=== PATIENT | female | born 1960 | race Caucasian/White ===

== ENCOUNTER 2025-04-02 12:40 | Inpatient (IN) | payer BC, OTHER ==
[~2025-04-02] VITALS: Ht 167.6 cm; Wt 116.0 kg
--- NOTE | 2025-04-02 13:21 | ED.PDOC ---
History of Present Illness HPI Comments A 65 YEAR OLD FEMALE PRESENTS TO THE ED WITH COMPLAINT OF WOUND RECHECK OF RIGHT LOWER LEG. PATIENT STATES THAT SHE SUSTAINED A DOG BITE WOUND ON HER RIGHT LOWER LEG 4 MONTHS AGO AND HAS BEEN EXPERIENCING AN INFECTION TO THIS AREA OFF AND ON SINCE THEN. PATIENT REPORTS SHE HAS BEEN PRESCRIBED MULTIPLE ANTIBIOTICS OVER THE PAST 4 WEEKS FROM [facility] AND HER PRIMARY CARE PHYSICIAN, BUT NOTES THERE HAS BEEN NO IMPROVEMENT IN HIS SYMPTOMS. PATIENT STATES SHE CURRENTLY HAS A WOUND TO HER RIGHT LOWER EXTREMITY WITH REDNESS AND SWELLING. PATIENT DENIES FEVER, CHILLS, SHORTNESS OF BREATH, CHEST PAIN, ABDOMINAL PAIN, NAUSEA, VOMITING, HEADACHE, OR OTHER COMPLAINTS. NO OTHER SYMPTOMS OR MODIFYING FACTORS AT THIS TIME. PATIENT IS ALERT, ORIENTED X 4, AND HAS STEADY GAIT. Chief Complaint: Wound Check Time Seen by MD: 12:46 Reviewed Notes: Nurses Notes, Medications, Allergies Allergies: Coded Allergies: No Known Drug Allergy (Verified Allergy, Unknown, 04/02/25) Information Source: Patient Mode of Arrival: Ambulatory Severity: Moderate Timing: Months Duration: Since onset Prehospital treatment: None Medication Refill: For: Other (WOUND RECHECKED OF RIGHT LOWER LEG) Past Medical History PAST MEDICAL HISTORY: Denies Surgical History: Denies all surgeries BASS MECHANISM MAKER History: No Pertinent BASS MECHANISM MAKER History Family History Family History: Reviewed,noncontributory to illness Social History Smoker: Non-Smoker Alcohol: Denies ETOH Use Drugs: Denies Drug Use Lives In: Home Constitutional: denies: chills, diaphoresis, fatigue, fever, malaise, sweats, weakness, others EENTM: denies: blurred vision, double vision, ear bleeding, ear discharge, ear drainage, ear pain, ear ringing, eye pain, eye redness, hearing loss, mouth yoel n, mouth swelling, nasal discharge, nose bleeding, nose congestion, nose pain, photophobia, tearing, throat pain, throat swelling, voice changes, others Respiratory: denies: cough, hemoptysis, orthopnea, SOB at rest, shortness of breath, SOB with excertion, stridor, wheezing, others Cardiovascular: denies: chest pain, dizzy spells, diaphoresis, Dyspnea on exertion, edema, irregular heart beat, left arm pain, lightheadedness, palpitations, PND, syncope, others Gastrointestinal: denies: abdomen distended, abdominal pain, blood streaked bowels, constipated, diarrhea, dysphagia, difficulty swallowing, hematemesis, melena, nausea, poor appetite, poor fluid intake, rectal bleeding, rectal pain, vomiting, others Genitourinary: denies: abnormal vagina bleeding, burning, dyspareunia, dysuria, flank pain, frequency, hematuria, incontinence, pain, , vagina discharge, urgency, others Neurological: denies: dizziness, fainting, headache, left sided numbness, left sided weakness, numbness, paresthesia, pre-existing deficit, right sided numbness, right sided weakness, seizure, speech problems, tingling, tremors, weakness, others Musculoskeletal: denies: back pain, gout, joint pain, joint swelling, muscle pain, muscle stiffness, neck pain, others Integumetry: reports: lesions, wounds (WOUND OF RIGHT LOWER LEG WITH REDNESS AND SWELLING); denies: bruises, change in color, change in hair/nails, dryness, laceration, lumps, rash, others Allergic/Immunocompromised: denies: Difficulty Healing, Frequent Infections, Hives, Itching, others Hematologic/Lymphatic: denies: anemia, blood clots, easy bleeding, easy bruising, swollen glands, others Endocrine: denies: excessive hunger, excessive sweating, excessive thirst, excessive urination, flushing, intolerance to cold, intolerance to heat, unexplained weight gain, unexplained weight loss, others Psychiatric: denies: anxiety, bipolar disorder, depression, hopeless, panic disorder, schizophrenia, sleepless, suicidal, others All Other Systems: Reviewed and Negative Physical Exam General Appearance: No Apparent Distress, Obese HEENT: Normal ENT Inspection, PERRL/EOMI, Pharynx Normal, TMs Normal Neck: Full Range of Motion, Non-Tender, Normal, Normal Inspection Respiratory: Chest Non-Tender, Lungs Clear, No Accessory Muscle Use, No Respiratory Distress, Normal Breath Sounds Cardiovascular: No Edema, No JVD, No Murmur, No Gallop, Normal Peripheral Pulses, Regular Rate/Rhythm Breast Exam: Deferred Gastrointestinal: No Organomegaly, Non Tender, No Pulsatile Mass, Normal Bowel Sounds, Soft Genitalia: Deferred Pelvic: Normal External Exam Rectal: Deferred Extremities: No calf tenderness, Normal capillary refill, Normal range of motion, No pedal edema, Tender (WITH A DRY OPEN WOUND ON RIGHT POSTERIOR LOWER LEG. NO DVT SIGNS. ) Musculoskeletal : Apperance: Normal Neurologic: Alert, brood station manager II-XII nml as Tested, No Motor Deficits, Normal Affect, Normal Mood, No Sensory Deficits Cerebellar Function: Normal Reflexes: Normal Skin: Dry, Normal Color, Warm, Wounds (A [id number] DRY OPEN WOUND WITH LOCALIZED ERYTHEMA, SWELLING AND HARDNESS ON RIGHT P[OSTERIOR LOWER LEG, NO PUS DRAINAGE, CONSISTENT WITH WOUND INFECTION/CELLULITIS. ) Peripheral Pulses: 2+ carotid (R), 2+ carotid (L), 2+ dorsalis pedis (R), 2+ d orsalis pedis (L) Lymphatic: No Adenopathy Was a procedure done? Was a procedure done?: No Differential Dx Considerations may include: WOUND RECHECKED, WOUND INFECTION, CELLULITIS, FAILURE OF OUTPATIENT TREATMENT, ABSCESS X-Ray, Labs, Meds, VS Vital Signs Date Time Temp Pulse Resp B/P (MAP) Pulse Ox O2 Delivery O2 Flow Rate FiO2 04/02/25 12:46 97.4 109 18 110/78 91 97.4 Lab Test 04/02/25 13:24 Range/Units White Blood Count 6.1 4.4-10.8 10^3/uL Red Blood Count 4.42 4.0-5.20 10^6/uL Hemoglobin 13.8 12.2-16.2 g/dL Hematocrit 40.0 36.0-46.0 % Mean Corpuscular Volume 90.6 80.0-100.0 fL Mean Corpuscular Hemoglobin 31.3 28.0-32.0 pg Mean Corpuscular Hemoglobin Concent 34.5 32.0-36.0 g/dL Red Cell Distribution Width 14.5 H 11.8-14.3 % Platelet Count 209 140-450 10^3/uL Mean Platelet Volume 8.1 6.9-10.8 fL Neutrophils (%) (Auto) 62.5 37.0-80.0 % Lymphocytes (%) (Auto) 26.2 10.0-50.0 % Monocytes (%) (Auto) 5.1 0.0-12.0 % Eosinophils (%) (Auto) 5.0 0.0-7.0 % Basophils (%) (Auto) 1.2 0.0-2.0 % Neutrophils # (Auto) 3.8 1.6-8.6 10 ^3/uL Lymphocytes # (Auto) 1.6 0.4-5.4 10 ^3/uL Monocytes # (Auto) 0.3 0-1.3 10 ^3/uL Eosinophils # (Auto) 0.3 0-0.8 10 ^3/uL Basophils # (Auto) 0.1 0-0.2 10 ^3/uL Nucleated Red Blood Cells 0.1 % Sodium Level 144 136-145 mmol/L Potassium Level 3.8 3.5-5.1 mmol/L Chloride Level 107 98-107 mmol/L Carbon Dioxide Level 27 20-31 mmol/L Anion Gap 10 5-15 Blood Urea Nitrogen 15 9-23 mg/dL Creatinine 0.80 0.550-1.02 mg/dL Glomerular Filtration Rate Calc 83 >90 mL/min BUN/Creatinine Ratio 18.8 10.0-20.0 Serum Glucose 120 H 74-106 mg/dL Lactic Acid Level 1.9 0.4-2.0 mmol/L Calcium Level 9.7 8.7-10.4 mg/dL X-Ray, Labs, Meds, VS Comment EXTERNAL MEDICAL RECORDS REVIEWED: [NONE] INDEPENDENT HISTORIANS: [NONE] SOCIAL DETERMINANTS OF HEALTH: [NONE] LABS ORDERED: CBC, BMP, BLOOD CULTURE, LACTIC ACID W/REFLEX REVIEWED AND INTERPRETED RESULTS: NORMAL IMAGING ORDERED: NONE TREATMENTS ORDERED: NS 1 L IV, ZOSYN 3.375 G IV PROCEDURES PERFORMED: NONE CRITICAL CARE TIME: NONE I HAVE DISCUSSED THE PATIENT WITH THE ATTENDING PHYSICIAN DR. RUFF AND HE AGREES WITH THE PATIENT'S PLAN OF CARE. UPON MY PHYSICAL EXAMINATION, THE PATIENT HAD A DRY WOUND ON HER RIGHT POSTERIOR LOWER LEG WITH SURROUNDING REDNESS AND SWELLING CONSISTENT WITH WOUND INFECTION AND ACUTE CELLULITIS. DUE TO THE PATIENT'S FAILING OUTPATIENT TREATMENT MULTIPLE TIMES AND THE FACT THAT HER PHYSICAL EXAM FINDINGS REVEALED FINDINGS SUGGESTIVE OF ACUTE CELLULITIS AND WOUND INFECTION, I HAVE DETERMINED THE PATIENT NEEDS TO BE ADMITTED FOR FURTHER TREATMENT AND EVALUATION. THE ON-CALL HOSPITALIST WILL BE CONTACTED FOR ADMISSION IN HIS PATIENT. Images Reviewed?: Images reviewed and evaluated by me Time of 1ST Reevaluation: 03:00 Reevaluation 1ST: Unchanged Patient Education/Counseling: Diagnosis, Treatment Family Education/Counseling: Diagnosis, Treatment SEPSIS Sepsis Screen Date sepsis recognized/suspect: Apr 02, 2025 Time Sepsis recognized/suspect: 125 Recent Procedure: No On Antibiotic Therapy: No Respiratory Rate >20: No Heart Rate >90: No Temp<36 C (96.8 F) or >38.3 C: No SBP <90 or MAP <65 mmHG: No New Acute Mental Status Change: No Is the patient on CPAP, BIPAP,: No Physician Orders Blood Culture (04/02/25 13:10) Heplock Iv (04/02/25 ) Sodium Chloride 0.9% (04/02/25 13:15) Vital Signs Date Time Temp Pulse Resp B/P (MAP) Pulse Ox O2 Delivery O2 Flow Rate FiO2 04/02/25 12:46 97.4 109 18 110/78 91 97.4 Laboratory Tests Test 04/02/25 13:24 Lactic Acid Level 1.9 mmol/L (0.4-2.0) White Blood Count 6.1 10^3/uL (4.4-10.8) Departure 1 Departure Time of Disposition: 15:00 Impression: Primary Impression: Cellulitis of right lower extremity Additional Impressions: Infected wound Failure of outpatient treatment Disposition: ADMITTED INPATIENT Condition: Serious Critical Care Note Critical Care Time?: No Stability Stability form required: Yes Unstable for transfer: Requires medication, ED Physician Assesment, Possible rapid decline I personally scribed for OSWALDO DIAZ ([email or web address]) on 04/02/25 at 13:21. Electronically submitted by Pedro Anderson ([email or web address]). I personally scribed for OSWALDO DIAZ ([email or web address]) on 04/02/25 at 14:40. Electronically submitted by Pedro WHITNEY). OSWALDO DIAZ Apr 02, 2025 13:21
[2025-04-02 13:36] LABS: Hematocrit 40.0 % (36.0-46.0); Hemoglobin 13.8 g/dL (12.2-16.2); Mean Corpuscular Hemoglobin 31.3 pg (28.0-32.0); Mean Corpuscular Volume 90.6 fL (80.0-100.0); Nucleated Red Blood Cells % 0.1 %
[2025-04-02 13:48] LABS: Potassium 3.8 mmol/L (3.5-5.1); Sodium 144 mmol/L (136-145)
[2025-04-02 13:49] LABS: Calcium 9.7 mg/dL (8.7-10.4); Carbon Dioxide 27 mmol/L (20-31)
[2025-04-02 13:51] LABS: Chloride 107 mmol/L (98-107)
[2025-04-02 13:54] LABS: BUN/Creatinine Ratio 18.8 (10.0-20.0); Blood Urea Nitrogen 15 mg/dL (9-23)
[2025-04-02 13:55] LABS: Glucose 120 mg/dL (74-106)
[2025-04-02 14:00] LABS: Anion Gap 10 (5-15)
[2025-04-02] MEDS ORDERED: ACETAMINOPHEN 325 MG TAB PO PRN (15:45)
[2025-04-02] MEDS ORDERED: ONDANSETRON HCL 4 MG/2 ML VIAL IV PRN (15:45)
--- NOTE | 2025-04-02 16:48 | DVHHP2 ---
History of Present Illness Reason for Visit: Wound check History of Present Illness 65-year-old female presents for evaluation of wound check. Patient reports being bitten by a dog on her right lower extremity three months ago. Patient finished the course of antibiotics last month and reports seen minor improvement. She continues to have redness around the wound. Denies purulent discharge. No fever or chills. Past Medical History Denies Past Surgical History Denies Family History Noncontributory Smoke: No ALCOHOL: none Drugs: None Lives: with Family Review of Systems Review of Systems Review of systems are currently negative otherwise addressed in HPI. Allergies: Coded Allergies: No Known Drug Allergy (Verified Allergy, Unknown, 04/02/25) Medications Current Medications Medications Dose Ordered Sig/Mojgan Route Start Time Stop Time Status Last Admin Dose Admin Ceftriaxone Sodium 50 ml @ 100 mls/hr DAILY@09 IV 04/03/25 09:00 Clindamycin Phosphate 50 ml @ 50 mls/hr Q8HR IV 04/02/25 22:00 Acetaminophen/ Hydrocodone Bitart 1 tab Q4HP PRN PO 04/02/25 15:45 Ondansetron HCl 4 mg Q4HP PRN IV 04/02/25 15:45 Acetaminophen 650 mg Q6HP PRN PO 04/02/25 15:45 Exam Vital Signs Vital Signs Date Time Temp Pulse Resp B/P (MAP) Pulse Ox O2 Delivery O2 Flow Rate FiO2 04/02/25 15:42 98.5 89 18 123/55 (77) 95 98.5 Exam Gen: 65-year-old female in mild distress Skin: Warm, dry, normal color and texture, no rash. HEENT: Normocephalic atraumatic, mucous membranes moist and pink. Neck: Cervical and supraclavicular nodes normal without enlargement, trachea is midline, thyroid gland is normal without masses. Pulmonary: Clear to auscultation and percussion bilaterally. Cardiac: Regular rate and rhythm. No murmur Abdomen: Soft, nontender, nondistended, bowel sounds present all 4 quadrants, no guarding, no rigidity, no organomegaly. Extremities: No cyanosis, clubbing, right lower extremity healing open wound with mild erythema surrounding Neuro: Cranial nerves II through XII grossly intact, normal affect and speech, no focal motor deficits. Labs/Xrays Labs Test 04/02/25 13:24 Range/Units White Blood Count 6.1 4.4-10.8 10^3/uL Red Blood Count 4.42 4.0-5.20 10^6/uL Hemoglobin 13.8 12.2-16.2 g/dL Hematocrit 40.0 36.0-46.0 % Mean Corpuscular Volume 90.6 80.0-100.0 fL Mean Corpuscular Hemoglobin 31.3 28.0-32.0 pg Mean Corpuscular Hemoglobin Concent 34.5 32.0-36.0 g/dL Red Cell Distribution Width 14.5 H 11.8-14.3 % Platelet Count 209 140-450 10^3/uL Mean Platelet Volume 8.1 6.9-10.8 fL Neutrophils (%) (Auto) 62.5 37.0-80.0 % Lymphocytes (%) (Auto) 26.2 10.0-50.0 % Monocytes (%) (Auto) 5.1 0.0-12.0 % Eosinophils (%) (Auto) 5.0 0.0-7.0 % Basophils (%) (Auto) 1.2 0.0-2.0 % Neutrophils # (Auto) 3.8 1.6-8.6 10 ^3/uL Lymphocytes # (Auto) 1.6 0.4-5.4 10 ^3/uL Monocytes # (Auto) 0.3 0-1.3 10 ^3/uL Eosinophils # (Auto) 0.3 0-0.8 10 ^3/uL Basophils # (Auto) 0.1 0-0.2 10 ^3/uL Nucleated Red Blood Cells 0.1 % Sodium Level 144 136-145 mmol/L Potassium Level 3.8 3.5-5.1 mmol/L Chloride Level 107 98-107 mmol/L Carbon Dioxide Level 27 20-31 mmol/L Anion Gap 10 5-15 Blood Urea Nitrogen 15 9-23 mg/dL Creatinine 0.80 0.550-1.02 mg/dL Glomerular Filtration Rate Calc 83 >90 mL/min BUN/Creatinine Ratio 18.8 10.0-20.0 Serum Glucose 120 H 74-106 mg/dL Lactic Acid Level 1.9 0.4-2.0 mmol/L Calcium Level 9.7 8.7-10.4 mg/dL SEPSIS Sepsis Screen Date sepsis recognized/suspect: Apr 02, 2025 Time Sepsis recognized/suspect: 1251 Recent Procedure: No On Antibiotic Therapy: No Respiratory Rate >20: No Heart Rate >90: No Temp<36 C (96.8 F) or >38.3 C: No SBP <90 or MAP <65 mmHG: No New Acute Mental Status Change: No Is the patient on CPAP, BIPAP,: No Physician Orders Blood Culture (04/02/25 13:10) Heplock Iv (04/02/25 ) Sodium Chloride 0.9% (04/02/25 13:15) Ceftriaxone 1gm/50ml (Rocephin) (04/03/25 09:00) Clindamycin 600mg Iv (Cleocin Iv) (04/02/25 22:00) * Wound Consult (04/02/25 ) Basic Metabolic Panel (04/03/25 04:00) Regular Diet (04/02/25 Dinner) Admit (04/02/25 15:31) Hydrocodone-Acet 5/325mg Tab ([place] 5/32 (04/02/25 15:45) Ondansetron Hcl (Zofran) (04/02/25 15:45) Complete Blood Count (04/03/25 04:00) Condition: Stable (04/02/25 15:31) Acetaminophen Tablet (Tylenol Tablet) (04/02/25 15:45) Bedrest With Bathroom Privileg (04/02/25 15:31) Vital Signs Date Time Temp Pulse Resp B/P (MAP) Pulse Ox O2 Delivery O2 Flow Rate FiO2 04/02/25 15:42 98.5 89 18 123/55 (77) 95 98.5 04/02/25 12:46 97.4 109 18 110/78 91 97.4 Laboratory Tests Test 04/02/25 13:24 Lactic Acid Level 1.9 mmol/L (0.4-2.0) White Blood Count 6.1 10^3/uL (4.4-10.8) Assessment/Plan Assessment/Plan Assessment Right lower extremity mild wound with cellulitis Plan Admit the patient to [facility] to the hospitalist Rocephin/clindamycin Wound consult Continue treatment per orders. Plan discussed with: Patient My Orders Orders - DESI WELLS Procedure Category Date Status Time Ceftriaxone 1gm/50ml PHA 04/03/25 In Process (Rocephin) 09:00 Clindamycin 600mg Iv PHA 04/02/25 In Process (Cleocin Iv) 22:00 * Wound Consult CONS 04/02/25 Transmitted Basic Metabolic Panel LAB 04/03/25 Verified 04:00 Regular Diet DIET 04/02/25 Transmitted Dinner Admit ADMIT 04/02/25 Transmitted 15:31 Hydrocodone-Acet PHA 04/02/25 In Process 5/325mg Tab ([place] 15:45 Ondansetron Hcl PHA 04/02/25 In Process (Zofran) 15:45 Complete Blood Count LAB 04/03/25 Verified 04:00 Condition: Stable JUN 04/02/25 In Process 15:31 Acetaminophen Tablet PHA 04/02/25 In Process (Tylenol Tablet) 15:45 Bedrest With Bathroom JUN 04/02/25 In Process Privileg 15:31 Date of Service: Apr 02, 2025 Billing Provider: DESI WELLS Common Visit Codes: [id number] INP/OBS CARE (MOD) DESI WELLS Apr 02, 2025 16:48
[2025-04-02 18:00] VITALS: BP 130/84; PULSE 72; PULSE 90; RESP 17; TEMP 98; O2SAT 97
[2025-04-02] MEDS: SODIUM CHLORIDE 0.9% 1,000 ML IV ONE (18:00)
[2025-04-02] MEDS: HYDROcodone-ACET 5/325MG TAB PO PRN (18:03)
[2025-04-02 20:00] VITALS: PULSE 94; RESP 19; O2SAT 93
[2025-04-02 21:00] VITALS: BP 113/61; PULSE 94; RESP 19; TEMP 98; O2SAT 93
[2025-04-02] MEDS: CLINDAMYCIN 600MG IV 50 ML IV SCH (22:00)
[2025-04-03] VITALS (8 sets, daily range): BP systolic 101–118; BP diastolic 50–74; PULSE 78–96; RESP 17–19; TEMP 97.1–98.9; O2SAT 91–95
[2025-04-03 06:11] LABS: Hematocrit 37.3 % (36.0-46.0); Hemoglobin 12.5 g/dL (12.2-16.2); Mean Corpuscular Hemoglobin 30.8 pg (28.0-32.0); Mean Corpuscular Volume 91.7 fL (80.0-100.0); Nucleated Red Blood Cells % 0.2 %
[2025-04-03 06:25] LABS: Potassium 4.2 mmol/L (3.5-5.1); Sodium 143 mmol/L (136-145)
[2025-04-03 06:26] LABS: Anion Gap 6 (5-15); Calcium 8.7 mg/dL (8.7-10.4); Carbon Dioxide 27 mmol/L (20-31)
[2025-04-03 06:31] LABS: BUN/Creatinine Ratio 27.9 (10.0-20.0); Blood Urea Nitrogen 17 mg/dL (9-23); Glucose 83 mg/dL (74-106)
[2025-04-03 06:37] LABS: Chloride 110 mmol/L (98-107)
--- NOTE | 2025-04-03 13:38 | DVHPN2 ---
Reviewed: Care Plan, H&P, Labs, Medications, Previous Orders, Radiology Changes from previous H/P or p: No Changes Objective Vitals Vital Signs Date Time Temp Pulse Resp B/P (MAP) Pulse Ox O2 Delivery O2 Flow Rate FiO2 04/03/25 09:00 97.7 83 17 118/74 (89) 93 97.7 04/03/25 07:59 Room Air* 0 21 Intake/Output Intake and Output 04/03/25 07:00 Intake Total 530 ml Balance 530 ml Intake Oral 480 ml IV Total 50 ml # Voids 2 Medications Current Medications Medications Dose Ordered Sig/Mojgan Route Start Time Stop Time Status Last Admin Dose Admin Ceftriaxone Sodium 50 ml @ 100 mls/hr DAILY@09 IV 04/03/25 09:00 04/03/25 09:28 100 MLS/HR Clindamycin Phosphate 50 ml @ 50 mls/hr Q8HR IV 04/02/25 22:00 04/03/25 06:05 50 MLS/HR Acetaminophen/ Hydrocodone Bitart 1 tab Q4HP PRN PO 04/02/25 15:45 04/02/25 18:03 1 TAB Ondansetron HCl 4 mg Q4HP PRN IV 04/02/25 15:45 Acetaminophen 650 mg Q6HP PRN PO 04/02/25 15:45 Laboratory Results Laboratory Tests 04/03/25 04:45 Chemistry Test 04/03/25 04:45 Calcium Level 8.7 mg/dL (8.7-10.4) Labs and/or images reviewed: Labs reviewed by me, Image(s) reviewed by me Assessment/Plan Assessment/Plan Cellulitis Right lower extremity: Rocephin clindamycin History of dog bite three months ago Noncompliance patient does not go to doctors Arterial ultrasound, venous ultrasound, MRI, podiatric consult ordered Plan discussed with: Patient Date of Service: Apr 03, 2025 Billing Provider: OLE DENISE MD Common Visit Codes: [id number] INP/OBS CARE(HIGH) OLE DENISE MD Apr 03, 2025 13:38
--- NOTE | 2025-04-03 14:21 | DVH ---
US RT Lower DVT HISTORY: Nonhealing wound rule out DVT COMPARISON: None TECHNIQUE: Realtime grayscale, color flow, and Doppler ultrasound images of the deep venous structures with spectral waveform analysis were obtained. Doppler spectral waveform analysis of the right lower extremity veins was performed. FINDINGS: Right Lower Extremity: Right common femoral vein: Normal compressibility and flow. Right femoral vein: Normal compressibility and flow. Right popliteal vein: Normal compressibility and flow. Probable popliteal fossa Lo's cyst. IMPRESSION: NO SONOGRAPHIC EVIDENCE FOR DEEP VENOUS THROMBOSIS IN THE right LOWER EXTREMITY VEINS.
--- NOTE | 2025-04-03 14:32 | DVH ---
BILATERAL Lower Extremity Arterial Duplex Date: 04/03/2025 02:02 PM CLINICAL HISTORY: Nonhealing wound right lower leg COMPARISON: None TECHNIQUE: Duplex Doppler evaluation including color Doppler and spectral/pulsed waveform analysis of the lower extremity arteries was performed. Finding: RIGHT: Peak systolic velocities are as follows: VETERINARY PRACTICE MANAGER 152 cm/s triphasic waveform Deep femoral 106 cm/s triphasic waveform SFA proximal 126 cm/s triphasic waveform SFA mid-portion 122 cm/s triphasic waveform SFA distal 19 cm/s triphasic waveform Popliteal proximal popliteal artery 89 cm/s triphasic waveform Distal popliteal artery 79 cm/sec triphasic waveform Posterior tibial 52 cm/s monophasic waveform Anterior tibial 85 cm/s triphasic waveform Dorsalis pedis 84 cm/s triphasic waveform The waveforms are triphasic waveform throughout the right lower extremity except in the posterior tibial artery distally where it is monophasic. REFERENCE VALUES, [facility] ([facility]) vascular Imaging Lab Criteria: Peak systolic velocity ranges (in cm/sec) are as follows: <150 cm/s - <20 % stenosis 150-200 cm/s - 20-49% stenosis 200-300 cm/s - 50-75% stenosis >300 cm/s -> 75% stenosis IMPRESSION: 1. There is no evidence for peripheral vascular insufficiency in the right lower extremity. Normal flow throughout right lower extremity except in the distal posterior tibial artery where there is monophasic waveform. 2. No significant focal stenosis is identified.
--- NOTE | 2025-04-03 16:15 | DVH ---
EXAMINATION: MRI MRI R TIB FIB WO CONTRAST R TECHNIQUE: MRI of the right tibia / fibula was performed without contrast. HISTORY: Rule out osteomyelitis. Pain and swelling. COMPARISON: None FINDINGS: No abnormal T1 or T2 marrow signal to suggest osteomyelitis. Generalized soft tissue edema with no focal organized fluid collections. No fracture or malalignment. No suspect bone lesions. No significant hip or knee joint effusion. Mild degenerative changes of the knee. IMPRESSION: No evidence for osteomyelitis or abscess.
[2025-04-04 01:00] VITALS: BP 128/65; PULSE 80; RESP 16; TEMP 97.8; O2SAT 93
[2025-04-04 04:49] VITALS: BP 125/72; PULSE 70; RESP 17; TEMP 98; O2SAT 93
[2025-04-04 08:46] VITALS: BP 125/73; PULSE 72; RESP 16; TEMP 97.4; O2SAT 94
--- NOTE | 2025-04-04 10:05 | DVHPN2 ---
Reviewed: Care Plan, H&P, Labs, Medications, Previous Orders, Radiology Changes from previous H/P or p: No Changes Objective Vitals Vital Signs Date Time Temp Pulse Resp B/P (MAP) Pulse Ox O2 Delivery O2 Flow Rate FiO2 04/04/25 08:46 97.4 72 16 125/73 (90) 94 97.4 04/04/25 07:40 Room Air* 0 21 Intake/Output Intake and Output 04/04/25 07:00 Intake Total 1430 ml Balance 1430 ml Intake Oral 1280 ml IV Total 150 ml # Voids 8 # Bowel Movements 2 Medications Current Medications Medications Dose Ordered Sig/Mojgan Route Start Time Stop Time Status Last Admin Dose Admin Ceftriaxone Sodium 50 ml @ 100 mls/hr DAILY@09 IV 04/03/25 09:00 04/04/25 09:06 100 MLS/HR Clindamycin Phosphate 50 ml @ 50 mls/hr Q8HR IV 04/02/25 22:00 04/04/25 05:12 50 MLS/HR Acetaminophen/ Hydrocodone Bitart 1 tab Q4HP PRN PO 04/02/25 15:45 04/04/25 02:15 1 TAB Ondansetron HCl 4 mg Q4HP PRN IV 04/02/25 15:45 Acetaminophen 650 mg Q6HP PRN PO 04/02/25 15:45 Laboratory Results Laboratory Tests 04/03/25 04:45 Microbiology Microbiology Date/Time Source Procedure Growth Status 04/02/25 13:24 Blood Blood Culture - Preliminary NO GROWTH AFTER 24 HOURS OF INCUBATION. Resulted Labs and/or images reviewed: Labs reviewed by me, Image(s) reviewed by me Assessment/Plan Assessment/Plan Cellulitis Right lower extremity: Rocephin clindamycin, podiatric consult for Dr. Perez pending History of dog bite three months ago Noncompliance patient does not go to doctors Peripheral arterial disease ruled out DVT ruled out Osteomyelitis right leg ruled out by negative MRI KATHERINE Corley at bed side Plan discussed with: Patient My Orders Orders - OLE DENSIE MD Procedure Category Date Status Time *Podiatry Consult CONS 04/03/25 Transmitted Chris(Dvmg) 13:31 Rt Lower Dvt US 04/03/25 Resulted 13:34 Mri R Tib Fib Wo MRI 04/03/25 Resulted Contrast R 13:34 Rt Low Ext Art Duplex US 04/03/25 Resulted 13:34 Date of Service: Apr 04, 2025 Billing Provider: OLE DENISE MD Common Visit Codes: [id number] INP/OBS CARE(HIGH) OLE DENISE MD Apr 04, 2025 10:05
[2025-04-04 13:25] VITALS: BP 93/53; PULSE 85; RESP 16; TEMP 98.1; O2SAT 95
[2025-04-04 16:40] VITALS: BP_SYST 125; BP_SYST 93; BP_DIAS 52; BP_DIAS 53; PULSE 81; PULSE 85; RESP 16; RESP 17; TEMP 98.2; O2SAT 95; O2SAT 97
[2025-04-04] MEDS: PIPERACILLIN-TAZOB 3.375GM 100 ML IV ONE (17:13)
[2025-04-04 21:00] VITALS: BP 129/73; PULSE 87; RESP 20; TEMP 97.9; O2SAT 94
[2025-04-05] VITALS (7 sets, daily range): BP systolic 90–134; BP diastolic 52–68; PULSE 72–93; RESP 14–20; TEMP 97.2–98.4; O2SAT 91–96
--- NOTE | 2025-04-05 10:04 | DVHPN2 ---
Reviewed: Care Plan, H&P, Labs, Medications, Previous Orders, Radiology Changes from previous H/P or p: No Changes Objective Vitals Vital Signs Date Time Temp Pulse Resp B/P (MAP) Pulse Ox O2 Delivery O2 Flow Rate FiO2 04/05/25 09:11 98.3 72 14 107/68 (81) 95 98.3 04/04/25 20:00 Room Air* 0 21 Intake/Output Intake and Output 04/05/25 07:00 Intake Total 1976 ml Balance 1976 ml Intake Oral 1876 ml IV Total 100 ml # Voids 12 # Bowel Movements 1 Medications Current Medications Medications Dose Ordered Sig/Mojgan Route Start Time Stop Time Status Last Admin Dose Admin Ceftriaxone Sodium 50 ml @ 100 mls/hr DAILY@09 IV 04/03/25 09:00 04/05/25 08:59 100 MLS/HR Clindamycin Phosphate 50 ml @ 50 mls/hr Q8HR IV 04/02/25 22:00 04/05/25 05:08 50 MLS/HR Acetaminophen/ Hydrocodone Bitart 1 tab Q4HP PRN PO 04/02/25 15:45 04/05/25 05:08 1 TAB Ondansetron HCl 4 mg Q4HP PRN IV 04/02/25 15:45 Acetaminophen 650 mg Q6HP PRN PO 04/02/25 15:45 Laboratory Results Laboratory Tests 04/03/25 04:45 Microbiology Microbiology Date/Time Source Procedure Growth Status 04/02/25 13:24 Blood Blood Culture - Preliminary NO GROWTH AFTER 48 HOURS OF INCUBATION. Resulted Labs and/or images reviewed: Labs reviewed by me, Image(s) reviewed by me Assessment/Plan Assessment/Plan Cellulitis Right lower extremity: Rocephin clindamycin, podiatric consult for Dr. Perez pending History of dog bite three months ago Noncompliance patient does not go to doctors Peripheral arterial disease ruled out DVT ruled out Osteomyelitis right leg ruled out by negative MRI RN Jory at bed side Time spent 36 mts Plan discussed with: Patient Date of Service: Apr 05, 2025 Billing Provider: OLE DENISE MD Common Visit Codes: [id number] INP/OBS CARE(HIGH) OLE DENISE MD Apr 05, 2025 10:04
[2025-04-06 01:00] VITALS: BP 100/52; PULSE 86; RESP 18; TEMP 98.1; O2SAT 97
[2025-04-06 05:00] VITALS: BP 100/63; PULSE 80; RESP 20; TEMP 97.3; O2SAT 95
[2025-04-06 08:56] VITALS: BP 105/53; PULSE 74; RESP 14; TEMP 97.5; O2SAT 94
--- NOTE | 2025-04-06 12:05 | DVHCONRES ---
Date Seen: Apr 06, 2025 Reason for Consultation Right lower extremity wound History of Present Illness 65-year-old female presents for evaluation of wound check. Patient reports being bitten by a dog on her right lower extremity three months ago. Patient finished the course of antibiotics last month and reports seen minor improvement. She continues to have redness around the wound. Denies purulent discharge. No fever or chills. Past Medical History See H&P Past Surgical History See H&P Allergies: Coded Allergies: No Known Drug Allergy (Verified Allergy, Unknown, 04/02/25) Vital Signs Vital Signs Date Time Temp Pulse Resp B/P (MAP) Pulse Ox O2 Delivery O2 Flow Rate FiO2 04/06/25 08:56 97.5 74 14 105/53 (70) 94 97.5 04/06/25 07:30 Room Air* 0 21 Physical Exam Dermatological: Skin is dry with mild erythema and some maceration around the wound site No gross deformities noted Mild non-pitting edema present bilaterally Right lateral leg eschar with surrounding erythema Vascular: Dorsalis pedis and posterior tibial pulses are 1+ bilaterally Capillary refill is under 2 seconds Skin temperature is warm bilaterally Neurologic: Protective sensation is absent on the plantar forefoot bilaterally Monofilament testing reveals decreased sensation in multiple plantar sites Musculoskeletal: Range of motion at the ankle and MTP joints is within normal limits. Strength is 5/5 in all tested muscle groups. Gait is antalgic due to offloading of the affected limb. Labs/Diagnostic Data Labs Test 04/03/25 04:45 04/02/25 13:24 Range/Units White Blood Count 5.5 4.4-10.8 10^3/uL Red Blood Count 4.07 4.0-5.20 10^6/uL Hemoglobin 12.5 12.2-16.2 g/dL Hematocrit 37.3 36.0-46.0 % Mean Corpuscular Volume 91.7 80.0-100.0 fL Mean Corpuscular Hemoglobin 30.8 28.0-32.0 pg Mean Corpuscular Hemoglobin Concent 33.6 32.0-36.0 g/dL Red Cell Distribution Width 14.6 H 11.8-14.3 % Platelet Count 190 140-450 10^3/uL Mean Platelet Volume 8.8 6.9-10.8 fL Neutrophils (%) (Auto) 57.5 37.0-80.0 % Lymphocytes (%) (Auto) 28.9 10.0-50.0 % Monocytes (%) (Auto) 6.8 0.0-12.0 % Eosinophils (%) (Auto) 6.2 0.0-7.0 % Basophils (%) (Auto) 0.6 0.0-2.0 % Neutrophils # (Auto) 3.1 1.6-8.6 10 ^3/uL Lymphocytes # (Auto) 1.6 0.4-5.4 10 ^3/uL Monocytes # (Auto) 0.4 0-1.3 10 ^3/uL Eosinophils # (Auto) 0.3 0-0.8 10 ^3/uL Basophils # (Auto) 0 0-0.2 10 ^3/uL Nucleated Red Blood Cells 0.2 % Sodium Level 143 136-145 mmol/L Potassium Level 4.2 3.5-5.1 mmol/L Chloride Level 110 H 98-107 mmol/L Carbon Dioxide Level 27 20-31 mmol/L Anion Gap 6 5-15 Blood Urea Nitrogen 17 9-23 mg/dL Creatinine 0.61 0.550-1.02 mg/dL Glomerular Filtration Rate Calc 100 >90 mL/min BUN/Creatinine Ratio 27.9 H 10.0-20.0 Serum Glucose 83 74-106 mg/dL Calcium Level 8.7 8.7-10.4 mg/dL Lactic Acid Level 1.9 0.4-2.0 mmol/L Microbiology Date/Time Source Procedure Growth Status 04/02/25 13:24 Blood Blood Culture - Preliminary NO GROWTH AFTER 72 HOURS OF INCUBATION. Resulted Problems(with codes): (1) Infected wound (2) Cellulitis of right lower extremity (3) Failure of outpatient treatment Plan/Recommendation ASSESSMENT: Patient is a 65 year old seen on the floor for a worsening ulcer PLAN: - The patients chart was reviewed, clinical findings were discussed with the patient, the etiologies of the conditions were discussed in detail, and a treatment plan was agreed to at this time, with both oral and written instructions provided. - reviewed advanced imaging - discussed no concern for deeper abscess or osteomyelitis - recommend 2 weeks of p.o. antibiotics - follow up with me a week after discharge - needs local wound care - no surgical intervention recommended at this point All questions were answered and concerns addressed to the patient's satisfaction. The patient was given the phone number to the clinic and was told how to make contact with the clinic should any concerns or questions arise. Patient understands that if any questions or concerns arise prior to the next appointment, we should be contacted immediately. FOLLOW-UP: Continue to follow while inpatient Plan discussed with: Patient Visit Coding Podiatry Date of Service if different f: Apr 06, 2025 Billing Provider: RUBÉN GRANADOS DPM Podiatry Common Visit Codes: CONSULT ONLY Podiatry Consult Codes: 61555-XS/OBS CONSLTJ NEW/EST HI 80 RUBÉN GRANADOS DPM Apr 06, 2025 12:05
[2025-04-06 13:30] VITALS: BP 98/61; PULSE 84; RESP 18; TEMP 98.4; O2SAT 94
[2025-04-06] MEDS ORDERED: SACC1CAP3 PO (14:22)
[2025-04-06] MEDS ORDERED: AUG875T PO (14:22)
--- NOTE | 2025-04-06 14:30 | DVHDS2 ---
Discharge Summary Date of Admission Apr 02, 2025 at 15:31 Date of Discharge: Apr 06, 2025 Labs/Diagnostic Data: Laboratory Results Test 04/03/25 04:45 04/02/25 13:24 White Blood Count 5.5 10^3/uL (4.4-10.8) Red Blood Count 4.07 10^6/uL (4.0-5.20) Hemoglobin 12.5 g/dL (12.2-16.2) Hematocrit 37.3 % (36.0-46.0) Mean Corpuscular Volume 91.7 fL (80.0-100.0) Mean Corpuscular Hemoglobin 30.8 pg (28.0-32.0) Mean Corpuscular Hemoglobin Concent 33.6 g/dL (32.0-36.0) Red Cell Distribution Width 14.6 % (11.8-14.3) Platelet Count 190 10^3/uL (140-450) Mean Platelet Volume 8.8 fL (6.9-10.8) Neutrophils (%) (Auto) 57.5 % (37.0-80.0) Lymphocytes (%) (Auto) 28.9 % (10.0-50.0) Monocytes (%) (Auto) 6.8 % (0.0-12.0) Eosinophils (%) (Auto) 6.2 % (0.0-7.0) Basophils (%) (Auto) 0.6 % (0.0-2.0) Neutrophils # (Auto) 3.1 10 ^3/uL (1.6-8.6) Lymphocytes # (Auto) 1.6 10 ^3/uL (0.4-5.4) Monocytes # (Auto) 0.4 10 ^3/uL (0-1.3) Eosinophils # (Auto) 0.3 10 ^3/uL (0-0.8) Basophils # (Auto) 0 10 ^3/uL (0-0.2) Nucleated Red Blood Cells 0.2 % Sodium Level 143 mmol/L (136-145) Potassium Level 4.2 mmol/L (3.5-5.1) Chloride Level 110 mmol/L (98-107) Carbon Dioxide Level 27 mmol/L (20-31) Anion Gap 6 (5-15) Blood Urea Nitrogen 17 mg/dL (9-23) Creatinine 0.61 mg/dL (0.550-1.02) Glomerular Filtration Rate Calc 100 mL/min (>90) BUN/Creatinine Ratio 27.9 (10.0-20.0) Serum Glucose 83 mg/dL (74-106) Calcium Level 8.7 mg/dL (8.7-10.4) Lactic Acid Level 1.9 mmol/L (0.4-2.0) Other Laboratory Tests 04/03/25 04:45 Brief Hx & Hospital Course: 65-year-old female presents for evaluation of wound check. Patient reports being bitten by a dog on her right lower extremity three months ago. Patient finished the course of antibiotics last month and reports seen minor improvement. She continues to have redness around the wound. Denies purulent discharge. No fever or chills. Patient was seen in Podiatry consult, will discharge with Augmentin. See podiatry clinic in 1-2 weeks. Condition at Discharge: Stable Final Diagnosis/Problems List Cellulitis Right lower extremity: Augmentin History of dog bite three months ago Discharge Disposition: Home Discharge Instruct/Medications Diet: Regular Activity: Light activity Follow Up/Referral: Dr. Perez 1-2 weeks Medications: see med recc Scheduled Amoxicillin & Pot Clavulanate (Augmentin Tablet), 875 MG PO BID Yeast (S. Boulardii)(S. Cerevi (Probiotic), 250 MG PO HS Discharge Statement: "Patient was advised to return to the ER or call 911 if any headaches, dizziness, shortness of breath, chest pain, abdominal pain, bleeding, fevers, or worsening of medical condition. Patient was counseled about treatment plan, medications, possible side effects, patientverbalized understanding. All questions were answered to the best of my ability. This discharge took greater then 30 minutes in planning, reviewing documentation, counseling the patient, and discussing with other team members." ASSESSMENT ASSESSMENT Assessment Date of Service: Apr 06, 2025 Billing Provider: CHICHI RAUSCH MD Common Visit Codes: 38441-RVN/OBS DISCH DAY >30min CHICHI RAUSCH MD Apr 06, 2025 14:30
[2025-04-06 16:43] VITALS: TEMP 36.9
[2025-04-06 17:15] VITALS: BP 115/83; PULSE 97; RESP 18; TEMP 98.2; O2SAT 97
== END 2025-04-06 17:34 | disposition home or self-care (01) | DRG 603 ==
LOC: ER 12:40 → OVERFLOW 15:31 → EAST 17:54
PROVIDERS: ADMIT Internal Medicine; ATTEND Internal Medicine
DX: L03.115 Cellulitis of right lower limb (principal); Z91.199 Patient's noncompliance with other medical treatment and regimen due to unspecified reason
CPT/HCPCS: 36415; 73718; 80048; 83605; 85025; 87040; 93926; 93971; 96360; G0378; J2543; J3490